=== PATIENT | female | born 2000 | race Caucasian/White ===

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

== ENCOUNTER 2021-05-18 22:31 | Emergency (ER) | payer BC ==
[~2021-05-18] VITALS: Ht 172.7 cm; Wt 98.2 kg
[~2021-05-18 22:31] MED LIST changes: +LEVAQUIN 750MG750 M1 PO; +PROVENTIL0.09 MG/A1 IH
[2021-05-18 23:08] VITALS: TEMP 98.3
[2021-05-18] MEDS ORDERED: CORGARD20 MG PO (23:40)
[2021-05-18] MEDS ORDERED: ZOLOFT 100MG100 MG PO (23:41)
[2021-05-19 00:11] LABS: COLLECTION METHOD RANDOM VOIDED
[2021-05-19 00:23] LABS: BASO % 0.5 % (0.0-2.0); EOS # 0.1 (0.0-0.7); EOS % 0.7 % (0-4.0); GRAN # 5.9 (1.4-6.5); GRAN % 66.9 % (42.2-75.2); HEMATOCRIT 40.5 % (35.0-45.0); HEMOGLOBIN 14.2 g/dl (12.0-15.0); LYMPH # 2.2 (1.2-3.4); LYMPH % 24.7 % (20.0-51.0); MEAN CELL VOLUME 82 fl (80.0-95.0); MEAN CORPUSCULAR HEMOGLOBIN 29 pg (26.0-32.0); MEAN CORPUSCULAR HGB CONC 35 g/dl (33.0-37.0); MONO # 0.6 (0.1-0.6); PLATELET COUNT 296 K/mm3 (130-400); RED BLOOD COUNT 4.92 M/mm3 (4.10-5.30); REDCELL DISTRIBUTION WIDTH-CV 12.5 % (11.5-14.5)
[2021-05-19 00:28] LABS: MUCOUS Present /lpf; PH 6 (5-8); URINE APPEARANCE Hazy; URINE BACTERIA None Seen /hpf; URINE BILIRUBIN Negative (NEGATIVE); URINE BLOOD Negative (NEGATIVE); URINE COLOR Yellow; URINE GLUCOSE Negative (NEGATIVE); URINE KETONE Negative (NEGATIVE); URINE LEUKOCYTE ESTERASE Trace (NEGATIVE); URINE NITRATE Negative (NEGATIVE); URINE PROTEIN(semi-quant) Negative (NEGATIVE); URINE RBC None Seen /hpf; URINE UROBILINOGEN Negative (NEGATIVE); URINE WBC None Seen /hpf
[2021-05-19 00:34] LABS: ALBUMIN 4.6 gm/dL (3.5-5.0); BILIRUBIN,TOTAL 0.8 mg/dL (0.0-1.0); CALCIUM 9.7 mg/dL (8.4-10.2); CREATININE, serum 0.77 (0.52-1.25); POTASSIUM 3.6 mmol/L (3.4-5.0); TOTAL PROTEIN 7.9 gm/dL (6.4-8.2)
[2021-05-19] MEDS ORDERED: PHENERGAN 25 TA25 MG PO (02:49)
[2021-05-19] MEDS ORDERED: MACROBID 1100 MG/CAP PO (02:49)
[2021-05-19 03:30] VITALS: BP 128/70; PULSE 65
== END 2021-05-19 03:30 | disposition home or self-care (01) ==
LOC: COL.ER 22:31
PROVIDERS: Nurse Practitioner Primary Care
DX: N30.20 Other chronic cystitis without hematuria (principal); E86.0 Dehydration; Z32.02 Encounter for pregnancy test, result negative
CPT/HCPCS: J1200; J2270; J2405; J7030; Q9967

== ENCOUNTER 2021-05-28 21:42 | Emergency (ER) | payer BC ==
[~2021-05-28] VITALS: Ht 172.7 cm; Wt 114.5 kg
[~2021-05-28 21:42] MED LIST changes: +CORGARD20 MG PO; +PHENERGAN 25 TA25 MG PO; +ZOLOFT 100MG100 MG PO
[2021-05-28 21:45] VITALS: TEMP 98.7
[2021-05-28 22:44] LABS: BASO # 0.1 (0.0-0.2); BASO % 0.3 % (0.0-2.0); EOS # 0.1 (0.0-0.7); EOS % 0.5 % (0-4.0); GRAN # 12.7 (1.4-6.5); GRAN % 82.9 % (42.2-75.2); HEMATOCRIT 40.9 % (35.0-45.0); HEMOGLOBIN 14.4 g/dl (12.0-15.0); LYMPH # 1.7 (1.2-3.4); LYMPH % 11.1 % (20.0-51.0); MEAN CELL VOLUME 82 fl (80.0-95.0); MEAN CORPUSCULAR HEMOGLOBIN 29 pg (26.0-32.0); MEAN CORPUSCULAR HGB CONC 35 g/dl (33.0-37.0); MONO # 0.8 (0.1-0.6); MONO % 4.9 % (1.7-9.3); PLATELET COUNT 295 K/mm3 (130-400); RED BLOOD COUNT 4.98 M/mm3 (4.10-5.30); REDCELL DISTRIBUTION WIDTH-CV 12.8 % (11.5-14.5)
[2021-05-28 22:56] LABS: ALBUMIN 4.7 gm/dL (3.5-5.0); CALCIUM 9.2 mg/dL (8.4-10.2); CREATININE, serum 0.71 (0.52-1.25); POTASSIUM 3.2 mmol/L (3.4-5.0); TOTAL PROTEIN 8.2 gm/dL (6.4-8.2)
[2021-05-28] MEDS ORDERED: REGLAN 10MG10 MG/TAB PO (23:02)
[2021-05-28 23:28] VITALS: BP 123/80; PULSE 78
== END 2021-05-28 23:38 | disposition home or self-care (01) ==
LOC: COL.ER 21:42
PROVIDERS: Personal Emergency Response Attendant
DX: E86.0 Dehydration (principal); R21 Rash and other nonspecific skin eruption; R06.02 Shortness of breath; T42.6X5A Adverse effect of other antiepileptic and sedative-hypnotic drugs, initial encounter
CPT/HCPCS: J1200; J1790; J2930; J7030

== ENCOUNTER 2021-07-07 02:08 | Emergency (ER) | payer BC ==
[~2021-07-07] VITALS: Ht 172.7 cm; Wt 113.6 kg
[~2021-07-07 02:08] MED LIST changes: +REGLAN 10MG10 MG/TAB PO
[2021-07-07 02:13] VITALS: TEMP 97.4
[2021-07-07 02:49] LABS: BASO % 0.4 % (0.0-2.0); EOS # 0.1 K/mm3 (0.0-0.7); EOS % 1.2 % (0-4.0); HEMOGLOBIN 12.4 g/dl (12.0-15.0); LYMPH # 2.8 K/mm3 (1.2-3.4); LYMPH % 37.6 % (20.0-51.0); MEAN CELL VOLUME 83 fl (80.0-95.0); MEAN CORPUSCULAR HEMOGLOBIN 29 pg (26.0-32.0); MEAN CORPUSCULAR HGB CONC 35 g/dl (33.0-37.0); MEAN PLATELET VOLUME 10.4 fl (7.4-10.4); MONO # 0.5 K/mm3 (0.1-0.6); MONO % 6.5 % (1.7-9.3); PLATELET COUNT 204 K/mm3 (130-400); RED BLOOD COUNT 4.29 M/mm3 (4.10-5.30); REDCELL DISTRIBUTION WIDTH-CV 13.2 % (11.5-14.5)
[2021-07-07 02:50] LABS: HEMATOCRIT 35.8 % (35.0-45.0)
[2021-07-07 03:07] LABS: ALBUMIN 3.6 gm/dL (3.5-5.0); BILIRUBIN,TOTAL 0.5 mg/dL (0.2-1.2); CALCIUM 8.2 mg/dL (8.4-10.2); CREATININE, serum 0.68 mg/dL (0.57-1.11); TOTAL PROTEIN 6.1 gm/dL (6.2-8.1)
[2021-07-07 03:08] LABS: POTASSIUM 2.9 mmol/L (3.5-4.5)
[2021-07-07] MEDS ORDERED: KLOR-CON20 MEQ PO (05:37)
[2021-07-07 07:05] VITALS: BP 107/64; PULSE 57
== END 2021-07-07 07:18 | disposition home or self-care (01) ==
LOC: COL.ER 02:08
PROVIDERS: Personal Emergency Response Attendant
DX: F10.129 Alcohol abuse with intoxication, unspecified (principal); E87.6 Hypokalemia; Y90.7 Blood alcohol level of 200-239 mg/100 ml
CPT/HCPCS: J3480; J7030

== ENCOUNTER 2021-07-28 12:19 | Emergency (ER) | payer BC ==
[~2021-07-28] VITALS: Ht 172.7 cm; Wt 107.3 kg
[~2021-07-28 12:19] MED LIST changes: +KLOR-CON20 MEQ PO
[2021-07-28 12:32] VITALS: TEMP 97.8
[2021-07-28] MEDS ORDERED: MOTEGRITY1 MG PO (12:36)
[2021-07-28] MEDS ORDERED: SINGULAIR 110 MG/TAB PO (12:37)
[2021-07-28 13:09] LABS: BASO % 0.5 % (0.0-2.0); EOS # 0.1 K/mm3 (0.0-0.7); EOS % 1.7 % (0-4.0); GRAN # 4.4 K/mm3 (1.4-6.5); GRAN % 66.9 % (42.2-75.2); HEMATOCRIT 40.4 % (35.0-45.0); HEMOGLOBIN 14.5 g/dl (12.0-15.0); LYMPH # 1.5 K/mm3 (1.2-3.4); LYMPH % 22.5 % (20.0-51.0); MEAN CELL VOLUME 82 fl (80.0-95.0); MEAN CORPUSCULAR HEMOGLOBIN 29 pg (26.0-32.0); MEAN CORPUSCULAR HGB CONC 36 g/dl (33.0-37.0); MEAN PLATELET VOLUME 10.5 fl (7.4-10.4); MONO # 0.5 K/mm3 (0.1-0.6); MONO % 8.2 % (1.7-9.3); PLATELET COUNT 264 K/mm3 (130-400); RED BLOOD COUNT 4.96 M/mm3 (4.10-5.30); REDCELL DISTRIBUTION WIDTH-CV 12.6 % (11.5-14.5)
[2021-07-28 13:22] LABS: ALBUMIN 4.3 gm/dL (3.5-5.0); BILIRUBIN,TOTAL 1.3 mg/dL (0.2-1.2); CALCIUM 10.3 mg/dL (8.4-10.2); CREATININE, serum 0.69 mg/dL (0.57-1.11); POTASSIUM 3.8 mmol/L (3.5-4.5); TOTAL PROTEIN 7.1 gm/dL (6.2-8.1)
[2021-07-28 13:56] LABS: COLLECTION METHOD CLEAN CATCH
[2021-07-28 14:12] LABS: MUCOUS Present (NOT PRESENT); PH 5 (5-8); URINE APPEARANCE Cloudy (CLEAR/HAZY); URINE BACTERIA Rare (NONE SEEN); URINE BILIRUBIN Negative (NEGATIVE); URINE BLOOD Negative (NEGATIVE); URINE COLOR Yellow (YELLOW); URINE GLUCOSE Negative (NEGATIVE); URINE KETONE 2+ (NEGATIVE); URINE LEUKOCYTE ESTERASE 2+ (NEGATIVE); URINE NITRATE Negative (NEGATIVE); URINE PROTEIN(semi-quant) Negative (NEGATIVE); URINE UROBILINOGEN Negative (NEGATIVE)
[2021-07-28] MEDS ORDERED: MACROBID 1100 MG/CAP PO (14:38)
[2021-07-28 14:54] VITALS: BP 109/76; PULSE 67
== END 2021-07-28 14:56 | disposition home or self-care (01) ==
LOC: COL.ER 12:19
PROVIDERS: Physician Assistant
DX: K31.84 Gastroparesis (principal); N39.0 Urinary tract infection, site not specified; F41.9 Anxiety disorder, unspecified; F32.A Depression, unspecified; F43.10 Post-traumatic stress disorder, unspecified; Z90.49 Acquired absence of other specified parts of digestive tract; Z88.8 Allergy status to other drugs, medicaments and biological substances; Z79.899 Other long term (current) drug therapy
CPT/HCPCS: J0780; J1200; J1885; J7030